=== PATIENT | female | born 1965 | race Caucasian/White ===

== ENCOUNTER 2017-11-29 08:18 | Inpatient (IN) | payer BC ==
[2017-11-23 16:03] LABS: BASOPHILS % (AUTO) 0.3 % (0-1); EOSINOPHILS # (AUTO) 0.3 X10'3 (0-0.9); EOSINOPHILS % (AUTO) 3.5 % (0-6); LYMPHOCYTES # (AUTO) 2.4 X10'3 (1.1-4.8); MEAN CORPUSCULAR HEMOGLOBIN 28.9 PG (27.0-31.0); MEAN CORPUSCULAR HGB CONC 33.5 % (33.0-36.5); MEAN CORPUSCULAR VOLUME 86.2 FL (78-98); MEAN PLATELET VOLUME 7.9 FL (7.4-10.4); MONOCYTES # (AUTO) 0.6 X10'3 (0-0.9); MONOCYTES % (AUTO) 7.3 % (2-12); NEUTROPHILS # (AUTO) 5.2 X10'3 (1.8-7.7); NEUTROPHILS % (AUTO) 60.9 % (42-75); PRE OP HEMATOCRIT 43.3 % (35.0-45.0); PRE OP HEMOGLOBIN 14.5 g/dL (12.0-16.0); PRE OP PLATELET COUNT 285 X10'3 (140-440); RED BLOOD COUNT 5.03 X10'6 (4.20-5.60); RED CELL DISTRIBUTION WIDTH 13.6 % (11.5-14.5)
[2017-11-23 16:18] LABS: PRE OP INR 0.9 INR; PRE OP PROTIME 9.6 SECONDS (9.0-12.0)
[2017-11-23 16:19] LABS: ALBUMIN 3.9 G/DL (3.4-5.0); ALKALINE PHOSPHATASE 173 IU/L (46-116); BLOOD UREA NITROGEN 16 MG/DL (7-18); BUN/CREATININE RATIO 22.9 (6.6-38.0); CALCIUM 10.3 MG/DL (8.5-10.1); CHLORIDE 103 MMOL/L (99-107); PRE OP ALT 54 U/L (30-65); PRE OP ANION GAP 11 (8-16); PRE OP AST 25 U/L (10-37); PRE OP BILIRUB, TOTAL 0.2 MG/DL (0.0-1.0); PRE OP GLUCOSE 83 MG/DL (70-104); PRE OP SODIUM 142 MMOL/L (135-145); TOTAL CARBON DIOXIDE 28.4 MMOL/L (24-32); eGFR 88 ML/MIN
[2017-11-23 16:25] LABS: PRE OP POTASSIUM 3.6 MMOL/L (3.4-5.1)
[2017-11-23 16:29] LABS: CLARITY,URINE CLEAR (Clear); COLOR,URINE STRAW (Yellow); GLUCOSE, URINE NEGATIVE (Neg); KETONES,URINE NEGATIVE (Neg); LEUKOCYTE ESTERASE ,URINE NEGATIVE (Neg); NITRITES, URINE NEGATIVE (Neg); OCCULT BLOOD,URINE SMALL (Neg); PROTEIN,URINE NEGATIVE (Neg); UA COLLECTION TYPE CLN CATCH MIDSTREAM; UROBILINOGEN,URINE 0.2 E.U/dL (0.2-1.0)
[2017-11-23 16:44] LABS: BACTERIA,URINE NONE SEEN /HPF (Neg); RBC,URINE NONE SEEN /HPF (0-2); WBC,URINE NONE SEEN /HPF (0-4)
[2017-11-23 16:45] LABS: SQUAMOUS EPITHELIAL CELL,UR FEW /LPF (FEW)
[~2017-11-29] VITALS: Ht 162.6 cm; Wt 126.1 kg
[2017-11-29] VITALS (18 sets, daily range): BP systolic 85–144; BP diastolic 39–90
[~2017-11-29 08:18] MED LIST: ASPI-611 PO; ATOR10TA70 PO; BACI1TAB2; BIOT25008 PO; CA C; CETI-194 PO; CHOL10002 PO; CINN500C15; CITA40TA17 PO; CYAN100097 PO; FLAX1CAP4 PO; L. A1CAP2; LOSA1TAB41 PO; MAGN400C PO; MILK140C; MULT-38 PO; OCUSIGHT; OMEG1CAP13; POTASSIUM 300 MG; RANI150C4 PO; TURMERIC CURCUMIN; UBID100C16 PO; VERA120T7 PO; VITAFUSION FIBER; acetaminophen 325mg tablet PO ONE; ceFAZolin 2gm in dextrose, iso 100 ML IV ONE; celeCOXIB 100mg capsule PO ONE; famotidine 20mg tablet PO ONE; gabapentin 300mg capsule PO ONE; metoclopramide 5 mg/ml inj IV ONE; oxyCODONE SR 10mg (sust. release) tab PO ONE; ringers solution, lacted 1,000 ML IV SCH; tranexamic acid inj. 1,000 MG in normal saline 100ml IV soln 90 ML IV ONE; vancomycin inj 1,500 MG in normal saline 300ml IV soln IV ONE
[2017-11-29] MEDS ORDERED: ketorolac trometh. 30mg/ml inj. ONE (09:33)
[2017-11-29] MEDS ORDERED: epiNEPHrine 1 mg/ml inj ONE (09:33)
[2017-11-29] MEDS ORDERED: ROPIVAcaine 0.5% (5mg/ml) 30ml vial ONE ×2 (09:33→10:04)
[2017-11-29] MEDS ORDERED: vancomycin 1,000mg inj ONE (09:33)
[2017-11-29] MEDS ORDERED: diphenhydrAMINE 25mg capsule PO PRN ×2 (09:40)
[2017-11-29] MEDS ORDERED: ondansetron/PF 4mg/2ml inj IV PRN ×3 (09:40→10:55)
[2017-11-29] MEDS ORDERED: bisacodyl 10mg suppository rectal RC PRN (09:40)
[2017-11-29] MEDS ORDERED: acetaminophen 325mg tablet PO PRN (09:40)
[2017-11-29] MEDS ORDERED: magnesium hydroxide 30ml (MOM) UD suspension PO PRN (09:40)
[2017-11-29] MEDS ORDERED: HYDROmorphone 1 mg/ml syringe IV PRN ×2 (09:40)
[2017-11-29] MEDS ORDERED: LIDOcaine 1% (10mg/ml) 2ml vial ONE (09:48)
[2017-11-29] MEDS ORDERED: tetracaine 1% (10mg/ml) pres. free inj. ONE (10:04)
[2017-11-29] MEDS ORDERED: MIDAZolam 1mg/ml 10ml vial ONE (10:08)
[2017-11-29] MEDS ORDERED: MORPHINE SULFATE/PF 0.5 MG/ML 10ML AMPUL ONE (10:08)
[2017-11-29] MEDS ORDERED: fentaNYL/PF 50MCG/1 ML 2ML syringe ONE (10:08)
[2017-11-29] MEDS ORDERED: ringers solution, lacted 1,000 ML IV SCH (10:51)
[2017-11-29] MEDS ORDERED: naloxone 2mg/2ml inj 2 MG in normal saline 500ml IV soln 500 ML IV PRN (10:51)
[2017-11-29] MEDS ORDERED: morphine 2 MG/ML inj. syringe IV PRN ×3 (10:55→17:35)
[2017-11-29] MEDS ORDERED: meperidine/PF 25mg/ml syringe IV PRN ×3 (10:55)
[2017-11-29] MEDS ORDERED: diphenhydrAMINE 50 mg/ml inj IV PRN (10:55)
[2017-11-29] MEDS ORDERED: proCHLORperazine 10 MG/2 ml inj IV PRN (10:55)
[2017-11-29] MEDS: oxyCODONE/APAP 10/325mg tablet PO SCH ×4 (12:00→20:00)
[2017-11-29] MEDS ORDERED: propofol inj 20 ML IV ONE ×2 (12:01)
[2017-11-29] MEDS: potassium cl 20mEq in 1/2 NS 1,000 ML IV SCH ×2 (14:52→17:34)
[2017-11-29] MEDS: [UNRECOGNIZED DRUG - REMARK] PO NR (16:18)
[2017-11-29] MEDS: gabapentin 300mg capsule PO SCH ×2 (16:20→20:21)
[2017-11-29] MEDS: ceFAZolin 2gm in dextrose, iso 50 ML IV SCH (16:22)
[2017-11-29] MEDS ORDERED: mag hydrox/Alum hydrox/simeth 30ml oral suspension PO PRN (19:25)
[2017-11-29] MEDS: celeCOXIB 100mg capsule PO SCH (20:20)
[2017-11-29] MEDS: sennosides 8.6mg tablet PO SCH (20:20)
[2017-11-29] MEDS: ascorbic acid 500mg tablet PO SCH (20:21)
[2017-11-29] MEDS: atorvastatin 10mg tablet PO SCH (20:21)
[2017-11-30] MEDS ORDERED: ceFAZolin 2gm in dextrose, iso 100 ML IV ONE (00:01)
[2017-11-30] MEDS: potassium cl 20mEq in 1/2 NS 1,000 ML IV SCH (00:08)
[2017-11-30] MEDS: ceFAZolin 2gm in dextrose, iso 50 ML IV SCH (00:08)
[2017-11-30] MEDS: oxyCODONE/APAP 10/325mg tablet PO SCH ×6 (00:13→21:02)
[2017-11-30 02:00] VITALS: BP_SYST 112; BP_DIAS 58; BP_DIAS 71
[2017-11-30] MEDS: oxyCODONE/APAP 10/325mg tablet PO PRN ×2 (05:34→14:09)
[2017-11-30 06:00] VITALS: BP 117/69
[2017-11-30 06:34] LABS: BASOPHILS % (AUTO) 0.3 % (0-1); EOSINOPHILS # (AUTO) 0.3 X10'3 (0-0.9); EOSINOPHILS % (AUTO) 4.9 % (0-6); HEMATOCRIT 32.2 % (35.0-45.0); HEMOGLOBIN 11.4 g/dl (12.0-16.0); LYMPHOCYTES # (AUTO) 1.3 X10'3 (1.1-4.8); LYMPHOCYTES % (AUTO) 18.8 % (21-51); MEAN CORPUSCULAR HEMOGLOBIN 29.8 PG (27.0-31.0); MEAN CORPUSCULAR HGB CONC 35.2 % (33.0-36.5); MEAN CORPUSCULAR VOLUME 84.5 FL (78-98); MEAN PLATELET VOLUME 7.3 FL (7.4-10.4); MONOCYTES # (AUTO) 0.6 X10'3 (0-0.9); MONOCYTES % (AUTO) 8.2 % (2-12); NEUTROPHILS # (AUTO) 4.6 X10'3 (1.8-7.7); NEUTROPHILS % (AUTO) 67.8 % (42-75); PLATELET COUNT 203 X10'3 (140-440); RED BLOOD COUNT 3.81 X10'6 (4.20-5.60); RED CELL DISTRIBUTION WIDTH 13.6 % (11.5-14.5); WHITE BLOOD COUNT 6.7 X10'3 (4.5-11.0)
[2017-11-30 06:46] LABS: ANION GAP 6 (8-16); CHLORIDE 107 MMOL/L (99-107); POTASSIUM 4.5 MMOL/L (3.5-5.1); SODIUM 141 MMOL/L (135-145)
[2017-11-30] MEDS: multivitamins, therapeutics tablet PO SCH (07:18)
[2017-11-30] MEDS: celeCOXIB 100mg capsule PO SCH ×2 (07:19→21:02)
[2017-11-30] MEDS: HYDROchlorothiazide 12.5mg capsule PO SCH (07:19)
[2017-11-30] MEDS: gabapentin 300mg capsule PO SCH ×3 (07:19→21:01)
[2017-11-30] MEDS: ascorbic acid 500mg tablet PO SCH ×2 (07:19→21:01)
[2017-11-30] MEDS: losartan 50mg tablet PO SCH (07:20)
[2017-11-30] MEDS: magnesium oxide 400mg tablet PO SCH (07:21)
[2017-11-30] MEDS: cetirizine 10mg tablet PO SCH (07:21)
[2017-11-30] MEDS: citalopram 20mg tablet PO SCH (07:22)
[2017-11-30] MEDS: aspirin 325mg tablet PO SCH (08:26)
[2017-11-30] MEDS: [UNRECOGNIZED DRUG - REMARK] PO NR (08:27)
[2017-11-30 10:00] VITALS: BP 140/97
[2017-11-30] MEDS: morphine 2 MG/ML inj. syringe IV PRN ×2 (10:48→19:12)
[2017-11-30] MEDS: cyclobenzaprine 10mg tablet PO PRN (12:07)
[2017-11-30 18:00] VITALS: BP 163/84
[2017-11-30] MEDS: Protein Smoothie (high protein) 240ml (8oz) cup PO SCH (18:00)
[2017-11-30] MEDS: sennosides 8.6mg tablet PO SCH (21:01)
[2017-11-30] MEDS: atorvastatin 10mg tablet PO SCH (21:02)
[2017-11-30 22:00] VITALS: BP 159/79
[2017-12-01] MEDS: oxyCODONE/APAP 10/325mg tablet PO SCH ×7 (00:31→21:45)
[2017-12-01 06:00] VITALS: BP 155/66
[2017-12-01 06:29] LABS: BASOPHILS % (AUTO) 0.1 % (0-1); EOSINOPHILS # (AUTO) 0.1 X10'3 (0-0.9); EOSINOPHILS % (AUTO) 1.6 % (0-6); HEMATOCRIT 35.5 % (35.0-45.0); HEMOGLOBIN 12.5 g/dl (12.0-16.0); LYMPHOCYTES # (AUTO) 0.8 X10'3 (1.1-4.8); LYMPHOCYTES % (AUTO) 9.9 % (21-51); MEAN CORPUSCULAR HGB CONC 35.3 % (33.0-36.5); MEAN PLATELET VOLUME 7.7 FL (7.4-10.4); MONOCYTES # (AUTO) 0.7 X10'3 (0-0.9); MONOCYTES % (AUTO) 8.1 % (2-12); NEUTROPHILS # (AUTO) 6.6 X10'3 (1.8-7.7); NEUTROPHILS % (AUTO) 80.3 % (42-75); PLATELET COUNT 193 X10'3 (140-440); RED BLOOD COUNT 4.18 X10'6 (4.20-5.60); RED CELL DISTRIBUTION WIDTH 13.2 % (11.5-14.5); WHITE BLOOD COUNT 8.2 X10'3 (4.5-11.0)
[2017-12-01] MEDS: aspirin 325mg tablet PO SCH (08:27)
[2017-12-01] MEDS: ascorbic acid 500mg tablet PO SCH ×2 (08:27→20:07)
[2017-12-01] MEDS: cetirizine 10mg tablet PO SCH (08:27)
[2017-12-01] MEDS: multivitamins, therapeutics tablet PO SCH (08:27)
[2017-12-01] MEDS: gabapentin 300mg capsule PO SCH ×3 (08:27→20:08)
[2017-12-01] MEDS: magnesium oxide 400mg tablet PO SCH (08:27)
[2017-12-01] MEDS: celeCOXIB 100mg capsule PO SCH ×2 (08:27→20:07)
[2017-12-01] MEDS: citalopram 20mg tablet PO SCH (08:27)
[2017-12-01] MEDS: losartan 50mg tablet PO SCH (08:28)
[2017-12-01] MEDS: Protein Smoothie (high protein) 240ml (8oz) cup PO SCH ×3 (08:28→18:00)
[2017-12-01] MEDS: HYDROchlorothiazide 12.5mg capsule PO SCH (08:28)
[2017-12-01] MEDS: [UNRECOGNIZED DRUG - REMARK] PO NR (10:09)
[2017-12-01 11:05] VITALS: BP 146/77
[2017-12-01] MEDS ORDERED: ASPI-1 PO (11:19)
[2017-12-01 18:00] VITALS: BP 152/84
[2017-12-01] MEDS: atorvastatin 10mg tablet PO SCH (20:07)
[2017-12-01] MEDS: sennosides 8.6mg tablet PO SCH (20:08)
[2017-12-01] MEDS: cyclobenzaprine 10mg tablet PO PRN (21:44)
[2017-12-01 22:00] VITALS: BP 160/86
[2017-12-02] MEDS: oxyCODONE/APAP 10/325mg tablet PO SCH ×2 (05:35→08:03)
[2017-12-02 06:00] VITALS: BP 151/73
[2017-12-02 06:34] LABS: BASOPHILS % (AUTO) 0.2 % (0-1); EOSINOPHILS # (AUTO) 0.3 X10'3 (0-0.9); EOSINOPHILS % (AUTO) 4.3 % (0-6); HEMATOCRIT 35.6 % (35.0-45.0); HEMOGLOBIN 12.4 g/dl (12.0-16.0); LYMPHOCYTES # (AUTO) 0.8 X10'3 (1.1-4.8); MEAN CORPUSCULAR HEMOGLOBIN 29.8 PG (27.0-31.0); MEAN CORPUSCULAR HGB CONC 34.8 % (33.0-36.5); MEAN CORPUSCULAR VOLUME 85.7 FL (78-98); MEAN PLATELET VOLUME 7.6 FL (7.4-10.4); MONOCYTES # (AUTO) 0.6 X10'3 (0-0.9); MONOCYTES % (AUTO) 8.6 % (2-12); NEUTROPHILS # (AUTO) 5.3 X10'3 (1.8-7.7); NEUTROPHILS % (AUTO) 74.9 % (42-75); PLATELET COUNT 207 X10'3 (140-440); RED BLOOD COUNT 4.15 X10'6 (4.20-5.60); RED CELL DISTRIBUTION WIDTH 13.8 % (11.5-14.5); WHITE BLOOD COUNT 7.1 X10'3 (4.5-11.0)
[2017-12-02] MEDS: HYDROchlorothiazide 12.5mg capsule PO SCH (08:02)
[2017-12-02] MEDS: magnesium oxide 400mg tablet PO SCH (08:02)
[2017-12-02] MEDS: celeCOXIB 100mg capsule PO SCH (08:02)
[2017-12-02] MEDS: cetirizine 10mg tablet PO SCH (08:02)
[2017-12-02] MEDS: multivitamins, therapeutics tablet PO SCH (08:02)
[2017-12-02] MEDS: aspirin 325mg tablet PO SCH (08:03)
[2017-12-02] MEDS: citalopram 20mg tablet PO SCH (08:03)
[2017-12-02] MEDS: losartan 50mg tablet PO SCH (08:03)
[2017-12-02] MEDS: gabapentin 300mg capsule PO SCH (08:03)
[2017-12-02] MEDS: ascorbic acid 500mg tablet PO SCH (08:04)
[2017-12-02] MEDS: Protein Smoothie (high protein) 240ml (8oz) cup PO SCH (08:04)
[2017-12-02] MEDS: [UNRECOGNIZED DRUG - REMARK] PO NR (09:13)
[2017-12-02 10:40] VITALS: BP 139/78
== END 2017-12-02 11:10 | disposition home or self-care (01) | DRG 470 ==
LOC: PAS IN 08:18 → EDSTATUS 10:15 → ORTHO 4S 13:45
PROVIDERS: ADMIT Orthopaedic Surgery; ATTEND Orthopaedic Surgery
PROC: 0SRC0J9 Replacement of Right Knee Joint with Synthetic Substitute, Cemented, Open Approach (ICD-10-PCS; principal; 2017-11-29 10:12)
DX: M17.11 Unilateral primary osteoarthritis, right knee (principal); Z68.42 Body mass index [BMI] 45.0-49.9, adult; D50.0 Iron deficiency anemia secondary to blood loss (chronic); E78.5 Hyperlipidemia, unspecified; I10 Essential (primary) hypertension; E66.9 Obesity, unspecified; F32.9 Major depressive disorder, single episode, unspecified; Z79.82 Long term (current) use of aspirin
CPT/HCPCS: 36415; 71046; 73560; 80051; 80053; 81001; 85025; 85610; 85730; 86885; 86900; 86901; 87070; 93005; 97110; 97116; 97161; A6449; A6455; A7000; C1713; C1758; C1776; J0171; J0690; J1885; J2250; J2270; J2274; J2704; J2765; J2795; J3010; J3370; J3490; J7030; J7120